=== PATIENT | female | born 1975 | race Caucasian/White ===

== ENCOUNTER 2019-07-13 08:33 | Emergency (ER) | payer OTHER, SELFPAY ==
[2019-07-13 08:37] VITALS: BP 142/87; PULSE 79; RESP 16; TEMP 36.5; O2SAT 100; BMI 25.2
--- NOTE | 2019-07-13 08:38 | ED_ITS ---
Entered by Porsha Dotson, acting as scribe for Susan Guerra MD HPI - General Adult General: Chief complaint: Skin/Abscess/Foreign Body Stated complaint: RASH ON NECK Time Seen by Provider: 07/13/19 08:38 History of Present Illness: HPI narrative: 43 yo female presents with rash on neck. Pt states that she started getting this rash on Sunday. pt states that she has used peroxide, cortisone cream, and antibiotic ointment. Pt states that it itches. MD complaint: rash on neck Onset (ago): day(s) (5) Radiation: neck Severity: mild Associated symptoms: Reports rash; Deny chest pain, dyspnea, headache(s), nausea or vomiting Review of Systems Const: Denies: fever, chills, body aches or change in appetite Eyes: Denies: blurry vision or eye discomfort ENMT: Denies: throat pain or dental pain Card: Denies: chest pain Resp: Denies: shortness of breath GI: Denies: abdominal pain, nausea, vomiting or diarrhea : Denies: painful urination Musc: Denies: neck pain or back pain Skin/Breast: Reports: rash and dry skin Neuro: Denies: headache Psych: Denies: depression Barry/Lymph: Denies: easy bruising All/Imm: Denies: hives PFSH ED PFSH: Social History Smoking and tobacco status: never smoked Physical Exam Const: COMMON NORMALS: no apparent distress, oriented x3 and healthy appearing HENMT: COMMON NORMALS: normocephalic and head/scalp atraumatic HEAD & SCALP: normocephalic and atraumatic Eye: COMMON NORMALS: PERRL and EOMs intact bilaterally PUPIL: Yes PERRL Neck/C-Spine: COMMON NORMALS: full ROM and supple Chest: COMMONS NORMALS: inspection of chest normal and palpation of chest normal Resp: COMMON NORMALS: normal respiratory effort, no retractions, no use of accessory muscles and clear to auscultation bilaterally AUSCULTATION: clear to auscultation bilaterally Cardio: COMMON NORMALS: regular rate, regular rhythm and no murmurs RATE: regular rate RHYTHM: regular rhythm GI: COMMON NORMALS: normal to inspection, nondistended, normoactive bowel sounds, soft to palpation, non-tender and no masses PALPATION: Yes soft Extremity: COMMON NORMALS: normal to inspection and full ROM Neuro: COMMON NORMALS: oriented x3, moves all extremities and no focal motor deficits Psych: COMMON NORMALS: mental status grossly normal, thought process normal and cooperative THOUGHT PROCESS: normal thought process Skin: NARRATIVE SKIN EXAM: macular papular rash to neck Course Vital Signs: Vital signs: Vital Signs Temperature 97.7 F 07/13/19 08:37 Pulse Rate 79 07/13/19 08:37 Respiratory Rate 16 07/13/19 08:37 Blood Pressure 142/87 07/13/19 08:37 Pulse Oximetry 98 07/13/19 08:43 MDM - General Adult MDM Narrative: Medical decision making narrative: Patient presents here with a rash to her neck that is likely allergic in nature. Will place on steroids and she is to take Benadryl. Patient has no signs of cellulitis or abscess. Patient is stable for discharge and is return if worsening. Discharge Plan Discharge Patient Disposition: Home, Self-Care Clinical Impression: Rash Condition: Stable Prescriptions: New prednisone 50 mg tablet 50 mg PO DAILY Qty: 5 RF: 0 Discharge Orders: Discharge Order (Routine); Ordered 07/13/19 Ordered By: Susan Guerra Referrals: Varsha Goetz [employer] [Family Provider] - 4-7 days Discharge Diet: Advance as tolerated Discharge Activity: Resume usual activity Patient Instructions: Acute Rash (ED) Discharge Date/Time: 07/13/19 08:47 Coding Level of Care Code ED [employer] Professor for Chg Fwd Exam Comprehensive The documentation recorded by the Mauri tripp Kialy, accurately reflects the service I personally performed and the decisions made by Mari valdovinos Korby, MD Jul 13, 2019 08:33
[2019-07-13 08:43] VITALS: O2SAT 98
== END 2019-07-13 08:47 | disposition home or self-care (01) ==
LOC: ER 08:57
PROVIDERS: Emergency Provider Emergency Medicine; Family Provider Nurse Practitioner
DX: R21 Rash and other nonspecific skin eruption (principal)
CPT/HCPCS: 99282

== ENCOUNTER 2020-03-12 12:46 | Outpatient (CLI) | payer OTHER, SELFPAY ==
--- NOTE | 2020-03-12 12:55 | MM_ITS ---
WS: [id number] BILATERAL DIGITAL SCREENING MAMMOGRAPHY WITH CAD CLINICAL INFORMATION: SCREENING HISTORY: Screening mammogram. No current complaints. COMPARISON: TECHNIQUE: Bilateral CC and MLO views. FINDINGS: The breasts are composed of heterogeneous fibroglandular density tissue, which can limit the detectio n of small underlying mass lesions. No suspicious mass, asymmetry, calcifications, or architectural d istortion. No evidence of malignancy. MM/[place] [id number] IMPRESSION: BI-RADS: 1-Negative FOLLOW UP: 1 Year Follow-up Recommend return to annual screening mammography.
== END 2020-03-12 12:47 | disposition home or self-care (01) ==
LOC: RADSHAW 12:50
PROVIDERS: PCP Nurse Practitioner; Visit Provider Nurse Practitioner
DX: Z12.31 Encounter for screening mammogram for malignant neoplasm of breast (principal)
CPT/HCPCS: 77067

== ENCOUNTER 2020-07-13 07:39 | Outpatient (CLI) | payer MEDICAID, SELFPAY ==
--- NOTE | 2020-07-13 07:45 | NM_ITS ---
WS: [id number] NUCLEAR MEDICINE HIDA SCAN CLINICAL INFORMATION: DZ OF GALLBLADDER/UPPER ABD PAIN/NAUESA W/VOMITING TECHNIQUE: Following intravenous administration of 8.0 mCi of technetium 99m mebrofenin, images of th e abdomen were obtained over the course of 60 minutes. Next, gallbladder ejection fraction was determ ined by obtaining preprandial and one-hour postprandial images of the gallbladder following oral abbi stion of Ensure. COMPARISON: None. FINDINGS: Normal hepatic uptake at 5 minutes. Gallbladder is visualized by 10 minutes. No evidence of acute cho lecystitis. Normal common bile duct and small bowel activity. Normal hepatic excretion. No evidence o f choledocholithiasis. Gallbladder ejection fraction 78% within normal limits. No evidence of chronic cholecystitis. NM/NM hepatobiliary w phar* [id number] IMPRESSION: 1. No evidence of acute or chronic cholecystitis. 2. Gallbladder ejection fraction 78% within normal limits.
== END 2020-07-13 07:40 | disposition home or self-care (01) ==
LOC: RAD 07:40
PROVIDERS: PCP Nurse Practitioner; Visit Provider Nurse Practitioner Family
DX: K82.9 Disease of gallbladder, unspecified (principal); R10.10 Upper abdominal pain, unspecified; R11.2 Nausea with vomiting, unspecified
CPT/HCPCS: 78227; A9537

== ENCOUNTER → 2020-07-19 13:09 | Outpatient (BNVA) | payer MEDICAID, SELFPAY | PROVIDERS: PCP Nurse Practitioner; Visit Provider Internal Medicine | DX: Z01.812 Encounter for preprocedural laboratory examination (principal); R10.11 Right upper quadrant pain; Z20.822 Contact with and (suspected) exposure to COVID-19 | CPT/HCPCS: 87635 ==

== ENCOUNTER 2020-07-23 07:50 | Day surgery (SDC) | payer MEDICAID, SELFPAY ==
[2020-07-21 14:15] VITALS: BMI 26.2
[2020-07-23 08:07] LABS: OR HCG Qualitative Urine Negative (Negative)
--- NOTE | 2020-07-23 08:07 | ANES.PREANE2 ---
Pre-Anesthetic Assessment Pre-Anesthetic Assessment: Height/Weight: Height 1.7 m Weight 75.75 kg Preop Diagnosis: Abdominal pain Proposed Procedure: Operation Date: 07/23/20 09:30 Proposed Procedures p EGD 08808 R10.11(Not Applicable) - Nathaniel Whitaker MD Familial anesthetic complications: NOne Last intake: NPO > 8 hrs Social: Social History: No alcohol and No tobacco Exam: Pre-Anes Outpt Exam: alert, oriented x 3, clear to auscultation bilaterally and regular rate & rhythm Airway: Cervical ROM: WNL MP: 4 Dentition: Chipped and Other (missing) Additional comments: poor dentition, discolored GI: GI: GERD (not right now) Metabolic: Metabolic: Thyroid Neuropsych: Neuropsych: Neuropathy (legs) Anesthetic Plan: ASA status: 2 Anesthesia: MAC Risk of > 500 ml blood loss (7ml/kg in children): No PFSH Anesthesia PFSH: Medical History GERD (gastroesophageal reflux disease) Hypothyroidism Family History Other Atrial fibrillation Hypertension Social History Smoking and tobacco status: never smoked Alcohol intake: never Data Anesthesia Other Labs: Laboratory Results - last 48 hr 07/23/20 07:58 Urine HCG, Qual Negative Cardiac Studies: Holter Monitor 09/03/19
[2020-07-23 08:42] VITALS: BP 132/84; PULSE 82; RESP 18; TEMP 36.7; O2SAT 95
[2020-07-23] MEDS: sodium chloride 0.9% 1,000 ML 30 ML IV (08:47)
--- NOTE | 2020-07-23 09:39 | W.PM.OPSUD ---
Surgery/Procedure H&P Update DATE OF PROCEDURE: July 23, 2020 DATE H&P PERFORMED: 07/15/20 PREOP DIAGNOSIS: egd PLANNED PROCEDURE: Operation Date: 07/23/20 09:30 Proposed Procedures p EGD 95112 R10.11(Not Applicable) - Nathaniel Whitaker MD
[2020-07-23 09:54] VITALS: BP 123/92; PULSE 93; RESP 16; TEMP 36.2; O2SAT 99
[2020-07-23 10:01] VITALS: BP 133/96; PULSE 97; RESP 18; O2SAT 97
--- NOTE | 2020-07-23 14:21 | ANE.PACU2 ---
Inpatient post-anesthesia follow up: Airway intact: Yes Vital signs: Temperature 97.2 F Pulse Rate 97 Respiratory Rate 18 Blood Pressure 133/96 Pulse Oximetry 97 Oxygen Delivery Me thod Room Air Oxygen Flow Rate Fraction of Inspir ed Oxygen Hydration adequate: Yes Nausea and vomiting: No Pain level: 1 Mental status: Baseline
[2020-07-26 07:33] LABS: H. Pylori / CLO Test Negative
== END 2020-07-23 10:25 | disposition home or self-care (01) ==
PROVIDERS: Anesthesiology; PCP Nurse Practitioner; Visit Provider Internal Medicine
PROC: 0DJ08ZZ Inspection of Upper Intestinal Tract, Via Natural or Artificial Opening Endoscopic (ICD-10-PCS; CPT 43235; principal; 2020-07-23 09:30)
DX: R10.11 Right upper quadrant pain (principal); K21.9 Gastro-esophageal reflux disease without esophagitis; E03.9 Hypothyroidism, unspecified; K29.70 Gastritis, unspecified, without bleeding
CPT/HCPCS: 43239; 84703; 87077; 96360; J2704; J3490; J7030

== ENCOUNTER → 2020-08-20 00:01 | Outpatient (BNVA) | payer MEDICAID, SELFPAY | PROVIDERS: PCP Nurse Practitioner; Visit Provider Surgery | DX: Z20.822 Contact with and (suspected) exposure to COVID-19 (principal) | CPT/HCPCS: 87635 ==

== ENCOUNTER 2020-08-25 05:42 | Day surgery (SDC) | payer MEDICAID, SELFPAY ==
[2020-08-24 10:38] VITALS: BMI 25.5
[2020-08-25] VITALS (12 sets, daily range): BP systolic 144–168; BP diastolic 90–113; PULSE 87–106; RESP 15–18; TEMP 36.3–36.6; O2SAT 94–99
[2020-08-25] MEDS: sodium chloride 0.9% 1,000 ML 30 ML IV (06:15)
[2020-08-25 06:19] LABS: OR HCG Qualitative Urine Negative (Negative)
--- NOTE | 2020-08-25 06:24 | ANES.PREANE2 ---
Pre-Anesthetic Assessment Pre-Anesthetic Assessment: Height/Weight: Height 1.7 m Weight 73.936 kg Temp Pulse Resp BP Pulse Ox 97.4 F L 90 18 145/95 96 08/25/20 06:12 08/25/20 06:12 08/25/20 06:12 08/25/20 06:12 08/25/20 06:12 Preop Diagnosis: Chronic cholecystitis Proposed Procedure: Operation Date: 08/25/20 07:00 Proposed Procedures p Laparoscopic Cholecystectomy 55383 r10.11(Not Applicable) - Alfonso Bal MD Familial anesthetic complications: none Was Beta Huong taken within 24 hours: N/A Was Clonidine taken within 24 hours: N/A Last intake: Intake Last Liquid Date 08/24/20 Last Liquid Time 23:30 Last Solid Date 08/24/20 Last Solid Time 16:00 Social: Social History: No alcohol and No tobacco Exam: Pre-Anes Outpt Exam: alert, oriented x 3, clear to auscultation bilaterally and regular rate & rhythm Airway: Cervical ROM: WNL MP: 2 Dentition: Chipped and Other (missing, poor dentition) GI: GI: GERD Metabolic: Metabolic: Thyroid Neuropsych: Neuropsych: Anxiety Anesthetic Plan: ASA status: 2 Anesthesia: General Risk of > 500 ml blood loss (7ml/kg in children): No Meds/Allergies Current Medications: Current Medications Generic Name Dose Route Start Last Admin Trade Name Freq PRN Reason Stop Dose Admin Sodium Chloride 1,000 mls @ 30 ml s/hr 08/25/20 06:00 08/25/20 06:15 Sodium Chloride 0.9% IV 08/26/20 05:59 30 mls/hr .Q24H ITZEL Administration PFSH Anesthesia PFSH: Medical History (Updated 07/30/20 @ 09:36 by Alfonso Bal MD) Anxiety GERD (gastroesophageal reflux disease) Hypothyroidism Surgical History (Updated 07/30/20 @ 09:36 by Alfonso Bal MD) History of ankle surgery History of esophagogastroduodenoscopy (EGD) (~2020) Family History Other Atrial fibrillation Hypertension Social History Smoking and tobacco status: never smoked Alcohol intake: never Female Reproductive History: Date of last menstrual period: 07/20/20 Data Anesthesia Other Labs: Laboratory Results - last 48 hr 08/25/20 05:57 Urine HCG, Qual Negative Cardiac Studies: Holter Monitor 09/03/19
--- NOTE | 2020-08-25 06:52 | W.PM.OPSUD ---
Surgery/Procedure H&P Update DATE OF PROCEDURE: August 25, 2020 DATE H&P PERFORMED: 07/30/20 H&P UPDATE INFORMATION: I have reviewed H&P completed within last 30 days, I have examined patient prior to procedure and No changes to prior documentation PREOP DIAGNOSIS: Chronic cholecystitis PLANNED PROCEDURE: Operation Date: 08/25/20 07:00 Proposed Procedures p Laparoscopic Cholecystectomy 49247 r10.11(Not Applicable) - Alfonso Bal MD
--- NOTE | 2020-08-25 08:02 | PM.OP ---
Operative Report Date of procedure: August 25, 2020 Pre-op Diagnosis: Chronic cholecystitis Post-op diagnosis: same Procedure Done: Laparoscopic cholecystectomy Specimens removed/disposition: Gallbladder Surgeon: Alfonso Bal Anesthesia: General Condition: stable Disposition: PACU Procedure: The patient was taken to the operating room and was intubated under general anesthesia. After the antibiotic had been administered, the abdomen was prepped and draped in a sterile manner. Using a #15 blade, a 1 centimeter infraumbilical curvilinear incision was made and using an open Rainer technique the peritoneal cavity was entered. A 10 millimeter port was placed and 15 millimeters of pneumoperitoneum was created. A 10 millimeter, 30 degrees scope was then introduced. Three 5 millimeter ports were placed in the epigastric, midclavicular and the anterior axillary line two fingerbreadths below the costal margin on the right side under the direct visualization. Ratcheted forceps were introduced into the lateral most port and was used to retract the fundus of the gallbladder cephalad and using forceps the infundibulum of the gallbladder was retracted laterally. The gallbladder was decompressed using an aspiration needle using L-hook cautery the peritoneum overlying the Calot's triangle was opened medially and laterally until the cystic duct and the cystic artery were skeletonized. There was chronic inflammation around the Calot's triangle. Dissection was carried along the body of the gallbladder and after ensuring critical view of safety, 4 clips applied on the cystic duct and 3 clips applied on the anterior and posterior branch of cystic artery and cut leaving, 3 clips on the remaining portion of the duct and 2 clips on the remaining portion of the artery. The rest of the gallbladder was dissected off the liver using L-hook cautery. There was no bleeding or bile leaking noted from the gallbladder fossa and the clips appeared to be in place. An EndoCatch bag was introduced to remove the gallbladder. All the ports were removed under direct visualization and there was no bleeding noted from the port sites. The fascia of the umbilicus was closed using [id number] 0 Vicryl sutures and the subcutaneous tissue was approximated using 3-0 Vicryl sutures. The skin at all four ports were closed using 4-0 Monocryl and Dermabond. A total of 10 millimeters of 0.5% Marcaine was infiltrated around the port sites. The patient was stable throughout the procedure.
--- NOTE | 2020-08-25 08:13 | SUR.PHASEI ---
pt awake alert , repositioned self on right side, good resp effort, vss iv patent, sats 93%
[2020-08-25] MEDS: ondansetron 2 mg/ML SDV 2 mL 4 MG IVP (08:23)
[2020-08-25] MEDS: fentaNYL 50 mcg/mL INJ 2mL IVP (08:24)
[2020-08-25] MEDS: HYDROcodone-acetaminophen 5-325 mg Tablet 1 TAB PO (08:52)
--- NOTE | 2020-08-25 15:51 | ANE.PACU2 ---
Inpatient post-anesthesia follow up: Airway intact: Yes Vital signs: Temperature 97.3 F Pulse Rate 87 Respiratory Rate 18 Blood Pressure 165/98 Pulse Oximetry 95 Oxygen Delivery Me thod Room Air Oxygen Flow Rate 6 Fraction of Inspir ed Oxygen Hydration adequate: Yes Nausea and vomiting: No Pain level: 3 Mental status: Baseline
== END 2020-08-25 09:30 | disposition home or self-care (01) ==
PROVIDERS: Anesthesiology; PCP Nurse Practitioner; Visit Provider Surgery
PROC: 0FT44ZZ Resection of Gallbladder, Percutaneous Endoscopic Approach (ICD-10-PCS; CPT 47562; principal; 2020-08-25 07:00)
DX: K81.1 Chronic cholecystitis (principal); K21.9 Gastro-esophageal reflux disease without esophagitis; E03.9 Hypothyroidism, unspecified
CPT/HCPCS: 47562; 84703; 88304; J0690; J1100; J2250; J2405; J2704; J3010; J3490; J7030

== ENCOUNTER → 2020-09-21 11:02 | Outpatient (BNVA) | payer MEDICAID, SELFPAY | PROVIDERS: PCP Nurse Practitioner; Referring Provider Nurse Practitioner; Visit Provider Orthopaedic Surgery | DX: M75.52 Bursitis of left shoulder (principal) | CPT/HCPCS: 73030 ==

== ENCOUNTER → 2020-11-10 14:54 | Outpatient (BNVA) | payer MEDICAID, SELFPAY | PROVIDERS: PCP Nurse Practitioner; Referring Provider Nurse Practitioner; Visit Provider Specialist | DX: G43.711 Chronic migraine without aura, intractable, with status migrainosus (principal); R42 Dizziness and giddiness; R26.9 Unspecified abnormalities of gait and mobility | CPT/HCPCS: 99204 ==

== ENCOUNTER 2020-12-21 08:11 | Outpatient (CLI) | payer MEDICAID, SELFPAY ==
--- NOTE | 2020-12-21 08:38 | MR_ITS ---
WS: [id number] MRI BRAIN WITHOUT CONTRAST HISTORY: G43.711 - Chronic migraine without aura, intractable. COMPARISON: None available. TECHNIQUE: Diffusion imaging, multiplanar T1, T2 and FLAIR imaging obtained. No evidence for acute infarct or hemorrhage. Dumas-white matter differentiation is normal. Single nons pecific focus of increased T2 and FLAIR signal in the subcortical white matter of the posterior LEFT frontal lobe. Not a typical for this age group. No prior infarcts are volume loss. No ectopia of dumas matter. No hippocampal formation abnormalities. No remote or acute infarcts are volume loss. Ventricles and extra-axial spaces are normal. No inferior displacement of cerebellar tonsils. The sella turcica and pituitary gland are unremarkabl e. Dural venous sinuses and saxman of [place] demonstrate no abnormality on this unenhanced studies. Paranasal sinuses: Clear. Mastoid air cells: Normal. Calvarium and scalp: Intact. MR/MR head wo con* [id number] IMPRESSION: 1. No acute infarct, hemorrhage or mass effect. 2. Single nonspecific focus of increased T2 signal subcortical LEFT frontal lo be white matter. Not unusual for this age group. 3. No prior infarcts.
== END 2020-12-21 08:12 | disposition home or self-care (01) ==
PROVIDERS: PCP Nurse Practitioner; Visit Provider Specialist
DX: G43.711 Chronic migraine without aura, intractable, with status migrainosus (principal)
CPT/HCPCS: 70551

== ENCOUNTER → 2021-02-09 12:20 | Outpatient (BNVA) | payer MEDICAID, SELFPAY | PROVIDERS: PCP Nurse Practitioner; Visit Provider Specialist | DX: G43.711 Chronic migraine without aura, intractable, with status migrainosus (principal); R42 Dizziness and giddiness | CPT/HCPCS: 99214 ==

== ENCOUNTER → 2021-03-09 09:17 | Outpatient (BNVA) | payer MEDICAID, SELFPAY | PROVIDERS: PCP Nurse Practitioner; Referring Provider Nurse Practitioner; Visit Provider Anesthesiology Pain Medicine | DX: M25.512 Pain in left shoulder (principal); M75.102 Unspecified rotator cuff tear or rupture of left shoulder, not specified as traumatic; M12.812 Other specific arthropathies, not elsewhere classified, left shoulder | CPT/HCPCS: 99204 ==

== ENCOUNTER 2021-04-12 11:52 | Outpatient (CLI) | payer MEDICAID, SELFPAY ==
--- NOTE | 2021-04-12 13:00 | MR_ITS ---
WS: [id number] MRI LEFT SHOULDER HISTORY: Unspecified rotator cuff tear. Prior injury. COMPARISON: 04/14/2015 TECHNIQUE: Multiplanar sequences of the shoulder joint are submitted. Mild AC joint arthritis with hypertrophy and synovial thickening. Very minimal encroachment upon the supraspinatus muscle. There is a small amount of fluid in the subacromial and subdeltoid bursa. 5 mm osteophyte from the distal undersurface of the acromion with mild subacromial impingement. No os acro mion. Biceps tendon in normal position. No rotator cuff tear or retraction. Normal size of the rotator cuff muscles. No edema. There is incre ased signal involving the anterior labrum. The remaining labrum is intact. Small subchondral cyst in the posterior lateral humeral head. MR/MR shoulder LT wo con* [id number] IMPRESSION: 1. Mild AC joint arthritis. 2. Mild subacromial impingement upon the supraspinatus by 5 mm osteophyte from the distal acromion. 3. No rotator cuff tear identified. 4. Focal anterior labral tear.
== END 2021-04-12 11:53 | disposition home or self-care (01) ==
LOC: RADSHAW 11:56
PROVIDERS: PCP Nurse Practitioner; Visit Provider Anesthesiology Pain Medicine
DX: M19.012 Primary osteoarthritis, left shoulder; M75.102 Unspecified rotator cuff tear or rupture of left shoulder, not specified as traumatic; S43.432A Superior glenoid labrum lesion of left shoulder, initial encounter; X58.XXXA Exposure to other specified factors, initial encounter
CPT/HCPCS: 73221

== ENCOUNTER 2021-04-25 15:19 | Emergency (ER) | payer MEDICAID, SELFPAY ==
[2021-04-25 16:06] VITALS: BP 122/74; PULSE 69; RESP 16; TEMP 36.8; O2SAT 98
--- NOTE | 2021-04-25 16:12 | XRR_ITS ---
PROCEDURE INFORMATION: Exam: XR Right Shoulder Exam date and time: 04/25/2021 4:12 PM Age: 45 years old Clinical indication: Patient HX: History--unknown injury, right shoulder pain, limited rom; Additional info: Injury/pain TECHNIQUE: Imaging protocol: XR Right shoulder. Views: 2 or more views. COMPARISON: CR Chest 1 [place] [id number] 08/21/2018 9:48 PM FINDINGS: Bones/joints: Normal. Soft tissues: Normal. XR/XR shoulder RT min 2V* [id number] IMPRESSION: No acute findings.
== END 2021-04-25 18:20 | disposition left against medical advice (07) ==
LOC: ER 15:21
PROVIDERS: Emergency Provider Family Medicine; PCP Nurse Practitioner
DX: Z53.21 Procedure and treatment not carried out due to patient leaving prior to being seen by health care provider (principal)
CPT/HCPCS: 73030

== ENCOUNTER → 2021-04-28 09:46 | Outpatient (BNVA) | payer MEDICAID, SELFPAY | PROVIDERS: PCP Nurse Practitioner; Visit Provider Anesthesiology Pain Medicine | DX: M19.012 Primary osteoarthritis, left shoulder (principal); R51.9 Headache, unspecified | CPT/HCPCS: 99214 ==

== ENCOUNTER 2021-08-19 13:24 | Outpatient (CLI) | payer OTHER, MEDICAID, SELFPAY ==
--- NOTE | 2021-08-19 13:36 | MM_ITS ---
WS: [id number] BILATERAL SCREENING 3D TOMOSYNTHESIS DIGITAL MAMMOGRAM WITH CAD HISTORY: SCREENING COMPARISON: 03/12/2020 and 01/06/2019 Bilateral CC and MLO views submitted. Computer aided detection analyzed. Breast composition: There are scattered areas of fibroglandular density. No suspicious masses, microc alcifications or architectural distortion. MM/[place] [id number] IMPRESSION: BI-RADS: 1-Negative FOLLOW UP: 1 Year Follow-up
== END 2021-08-19 13:25 | disposition home or self-care (01) ==
LOC: RADSHAW 13:27
PROVIDERS: PCP Nurse Practitioner; Visit Provider Nurse Practitioner
DX: Z12.31 Encounter for screening mammogram for malignant neoplasm of breast (principal)
CPT/HCPCS: 77063; 77067

== ENCOUNTER → 2021-11-16 09:09 | Outpatient (BNVA) | payer MEDICAID, SELFPAY | PROVIDERS: PCP Nurse Practitioner; Visit Provider Anesthesiology Pain Medicine | DX: M75.102 Unspecified rotator cuff tear or rupture of left shoulder, not specified as traumatic (principal); M12.812 Other specific arthropathies, not elsewhere classified, left shoulder | CPT/HCPCS: 99213 ==

== ENCOUNTER → 2021-12-15 12:02 | Outpatient (BNVA) | payer MEDICAID, SELFPAY | PROVIDERS: PCP Nurse Practitioner; Visit Provider Anesthesiology Pain Medicine | DX: M19.012 Primary osteoarthritis, left shoulder (principal) | CPT/HCPCS: 20610; J1030 ==

== ENCOUNTER → 2022-02-21 08:42 | Outpatient (BNVA) | payer MEDICAID, SELFPAY | PROVIDERS: PCP Nurse Practitioner; Visit Provider Anesthesiology Pain Medicine | DX: M75.102 Unspecified rotator cuff tear or rupture of left shoulder, not specified as traumatic (principal); M12.812 Other specific arthropathies, not elsewhere classified, left shoulder; G43.711 Chronic migraine without aura, intractable, with status migrainosus; R42 Dizziness and giddiness; M54.9 Dorsalgia, unspecified | CPT/HCPCS: 99213 ==

== ENCOUNTER → 2022-06-06 14:39 | Outpatient (BNVA) | payer MEDICAID, SELFPAY | PROVIDERS: PCP Nurse Practitioner; Visit Provider Specialist | DX: G43.711 Chronic migraine without aura, intractable, with status migrainosus (principal) | CPT/HCPCS: 99214 ==

== ENCOUNTER → 2022-10-04 09:00 | Outpatient (BNVA) | payer MEDICAID, SELFPAY | PROVIDERS: PCP Nurse Practitioner; Visit Provider Specialist | DX: G43.711 Chronic migraine without aura, intractable, with status migrainosus; R26.9 Unspecified abnormalities of gait and mobility; R42 Dizziness and giddiness; M19.90 Unspecified osteoarthritis, unspecified site; R26.89 Other abnormalities of gait and mobility | CPT/HCPCS: 99215 ==

== ENCOUNTER 2022-10-09 10:34 | Oncology outpatient (recurring) (ONCR) | payer MEDICAID, SELFPAY ==
[2022-10-09] VITALS (7 sets, daily range): BP systolic 116–127; BP diastolic 74–76; PULSE 64–68; RESP 16–18; TEMP 36.3–36.4; O2SAT 98–99
[2022-10-09] MEDS: ondansetron 2 mg/ML SDV 2 mL 4 MG IVP (12:02)
[2022-10-09] MEDS: diphenhydrAMINE 50 mg/mL SDV 1mL 25 MG IVP (12:06)
[2022-10-09] MEDS: sodium chloride 0.9% (100 ml) 100 ML 50 ML (12:19)
[2022-10-09] MEDS: dihydroergotamine 1 mg/mL Inj 0.5 MG IVP ×3 (12:26→15:20)
[2022-10-09] MEDS: dihydroergotamine 1 mg/mL Inj IVP (13:58)
[2022-10-09] MEDS: valproic acid inj 500 MG in sodium chloride 0.9% 50 ML 55 MG IV (15:59)
== END 2022-10-18 23:59 | disposition home or self-care (01) ==
LOC: ONCMED 10:35
PROVIDERS: PCP Nurse Practitioner; Visit Provider Specialist
DX: G43.711 Chronic migraine without aura, intractable, with status migrainosus (principal)
CPT/HCPCS: 96361; 96365; 96375; J1110; J1200; J2405; J3490

== ENCOUNTER 2022-10-20 08:52 | Outpatient (CLI) | payer MEDICAID, SELFPAY ==
--- NOTE | 2022-10-20 09:30 | MR_ITS ---
WS: [id number] MRI HEAD WITHOUT CONTRAST TECHNIQUE: Sagittal T1, T2 axial, T2 axial FLAIR, axial and coronal T1 images, axial susceptibility w eighted imaging, axial diffusion weighted images, and coronal T2 images were obtained. CLINICAL INFORMATION: R51.9 - Headache, unspecified COMPARISON: MRI December 21, 2020 FINDINGS: No evidence of restricted diffusion to suggest acute ischemia. Ventricular system and basal cisterns are patent. Single T2 hyperintensity in the LEFT posterior frontal subcortical white matter unchanged since 2020. No other suspicious intracranial signal abnormalities. Normal posterior fossa. Normal va scular flow voids at the skull base. No extra-axial fluid collections. No evidence of mass or mass ef fect. Paranasal sinuses and mastoid air cells well aerated. Normal posterior nasopharynx and parapharyngeal fat. No hemosiderin on susceptibly weighted images. Normal optic chiasm and pituitary infundibulum. Temporal lobes and hippocampal formations are normal in appearance. IMPRESSION: 1. No evidence of restricted diffusion to suggest acute ischemia. 2. Single focus of T2 hyperintensity in the LEFT posterior frontal lobe unchanged since 2020. This i s nonspecific but can be seen with migraine headaches. 3. No other suspicious intracranial signal abnormalities. 4. No hemosiderin on susceptibly weighted images. 5. No other acute findings.
== END 2022-10-20 08:53 | disposition home or self-care (01) ==
LOC: RAD 08:54
PROVIDERS: PCP Nurse Practitioner; Visit Provider Specialist
DX: R51.9 Headache, unspecified (principal); G89.29 Other chronic pain
CPT/HCPCS: 70551; 99215

== ENCOUNTER 2022-11-01 13:47 | Outpatient (CLI) | payer MEDICAID, SELFPAY ==
--- NOTE | 2022-11-01 13:54 | MM_ITS ---
WS: [id number] SCREENING DIGITAL TOMOSYNTHESIS MAMMOGRAM WITH CAD HISTORY: SCREEN COMPARISON: 08/19/2021, 03/12/2020 Bilateral CC and MLO with tomosynthesis views submitted. Synthetic mammography reviewed. Computer aid ed detection analyzed. Breast composition: There are scattered areas of fibroglandular density. No suspicious masses, microc alcifications or architectural distortion. MM/[place] [id number] IMPRESSION: BI-RADS: 1-Negative FOLLOW UP: 1 Year Follow-up
== END 2022-11-01 13:48 | disposition home or self-care (01) ==
LOC: RAD 13:48
PROVIDERS: PCP Nurse Practitioner; Visit Provider Nurse Practitioner
DX: Z12.31 Encounter for screening mammogram for malignant neoplasm of breast (principal)
CPT/HCPCS: 77063; 77067

== ENCOUNTER 2022-12-11 13:26 | Outpatient (CLI) | payer MEDICAID, SELFPAY ==
--- NOTE | 2022-12-11 14:57 | XR_ITS ---
WS: [id number] DEXA (DUAL ENERGY X-RAY ABSORPTIOMETRY) Bone mineral density was performed using a [employer] machine. HISTORY: [facility] (current) use of hormonal contraceptives COMPARISON: None available. Lumbar spine BMD (L1-L4): 0.987 g/cm2 T score: -1.6 Z score: -1.7 Total hip BMD: Left: 0.710 g/cm2. T score: -2.4 Z score: -2.2 Right: 0.711 g/cm2. T score: -2.4 Z score: -2.2 10 year probability of a major osteoporotic fracture is 4.6%. XR/XR DEXA axial skeleton* [id number] IMPRESSION: OSTEOPENIA based upon the WHO classification for females.
== END 2022-12-11 13:27 | disposition home or self-care (01) ==
LOC: RAD 13:27
PROVIDERS: PCP Nurse Practitioner; Visit Provider Nurse Practitioner
DX: Z79.3 Long term (current) use of hormonal contraceptives (principal); M85.80 Other specified disorders of bone density and structure, unspecified site
CPT/HCPCS: 77080

== ENCOUNTER → 2022-12-26 09:17 | Outpatient (BNVA) | payer MEDICAID, SELFPAY | PROVIDERS: PCP Nurse Practitioner; Referring Provider Nurse Practitioner; Visit Provider Student in an Organized Health Care Education/Training Program | DX: M70.61 Trochanteric bursitis, right hip; M70.62 Trochanteric bursitis, left hip | CPT/HCPCS: 20610; 73522; 99203; J3301; J3490 ==

== ENCOUNTER → 2023-01-17 13:09 | Outpatient (BNVA) | payer MEDICAID, SELFPAY | PROVIDERS: PCP Nurse Practitioner; Visit Provider Specialist | DX: G43.711 Chronic migraine without aura, intractable, with status migrainosus (principal) | CPT/HCPCS: 99213 ==

== ENCOUNTER 2023-02-22 10:53 | Outpatient (CLI) | payer OTHER, SELFPAY ==
--- NOTE | 2023-02-22 11:05 | XR_ITS ---
WS: [id number] EXAMINATION: XR knee RT 1-2V [id number] REASON FOR EXAM: R KNEE PAIN COMPARISON: None available. ORDER DATE: 02/22/2023 11:29 AM FINDINGS: There is no sign of any acute osseous or articular abnormality. There are no specific soft tissue abn ormalities. IMPRESSION: No acute change
== END 2023-02-22 10:54 | disposition home or self-care (01) ==
LOC: RAD 10:58
PROVIDERS: PCP Nurse Practitioner; Visit Provider Dermatology
DX: M25.561 Pain in right knee (principal)
CPT/HCPCS: 73560

== ENCOUNTER → 2023-02-27 10:46 | Outpatient (BNVA) | payer MEDICAID, SELFPAY | PROVIDERS: PCP Nurse Practitioner; Visit Provider Otolaryngology | DX: H93.12 Tinnitus, left ear (principal); M26.629 Arthralgia of temporomandibular joint, unspecified side; K08.9 Disorder of teeth and supporting structures, unspecified | CPT/HCPCS: 99202; 99203 ==

== ENCOUNTER 2023-03-17 20:23 | Emergency (ER) | payer MEDICAID, SELFPAY ==
[2023-03-17 20:32] VITALS: BP 147/87; PULSE 107; RESP 20; TEMP 36.5; O2SAT 98; BMI 25.0
--- NOTE | 2023-03-17 20:36 | W.ED.NAVMDI ---
HPI - Nausea/Vomiting/Diarrhea General: Chief complaint: Nausea/Vomiting/Diarrhea Stated complaint: n/v/d Time Seen by Provider: 03/17/23 20:36 History of Present Illness: 47-year-old female comes in today for complaints of nausea vomiting diarrhea since . Patient reports evening she started becoming ill. Patient has reported some chills. Patient reports poor oral intake with limited fluid intake. Patient reports decreased urination. Patient appears nontoxic. Patient appears in mild pain. Patient has a history of gallbladder removal. Patient takes medications for gastritis, chronic back pain, mental health disorder, hypothyroidism. Associated nausea: Yes Associated symtoms: Reports nausea; Denies chest pain Review of Systems General: Reports: 10 or more systems reviewed and unremarkable except in HPI and below Const: Denies: fever(s) Card: Denies: chest pain Resp: Denies: dyspnea GI: Reports: nausea, vomiting and diarrhea; Denies: constipation : Denies: difficulty voiding Musc: Reports: back pain Skin/Breast: Denies: rash PFSH ED PFSH: Medical History Anxiety GERD (gastroesophageal reflux disease) Hypothyroidism Surgical History History of ankle surgery History of esophagogastroduodenoscopy (EGD) (~2020) Status post laparoscopic cholecystectomy (08/25/20) Family History Other Atrial fibrillation Hypertension Social History Smoking and tobacco/nicotine status: never used tobacco/nicotine Second hand smoke exposure: Yes Alcohol intake: never Substance/Drug Use: never Physical Exam Const: COMMON NORMALS: alert HENMT: COMMON NORMALS: normocephalic HEAD & SCALP: normocephalic Neck/C-Spine: COMMON NORMALS: full ROM Resp: COMMON NORMALS: normal respiratory effort and clear to auscultation bilaterally AUSCULTATION: clear to auscultation bilaterally Cardio: COMMON NORMALS: regular rate and regular rhythm RATE: regular rate RHYTHM: regular rhythm GI: COMMON NORMALS: Soft to palpation PALPATION: Yes Soft to palpation and Yes Tenderness to palpation present (GI) (Mild generalized) Extremity: COMMON NORMALS: normal to inspection Neuro: SENSORIUM/ORIENTATION: Yes alert Skin: COMMON NORMALS: turgor normal GENERAL SKIN EXAM: turgor normal Course Vital Signs: Vital signs: Vital Signs Temperature 97.7 F 03/17/23 20:32 Pulse Rate 108 H 03/17/23 22:14 Respiratory Rate 14 03/17/23 22:14 Blood Pressure 153/95 03/17/23 22:14 Pulse Oximetry 96 03/17/23 22:14 MDM - Nausea/Vomiting/Diarrhea Medical Decision Making Patient presents with nausea vomiting diarrhea since . On exam abdomen soft with some generalized tenderness. Vital signs are normal except for some mild elevation in pulse. Remainder of exam is unremarkable. Differential diagnosis includes gastroenteritis, urinary tract infection, appendicitis, pancreatitis.CBC was unremarkable, CMP noted potassium 3.4, elevation and liver enzymes. Urinalysis was unremarkable. CT of the abdomen and pelvis noted some enterocolitis without obstruction or abscess. Reviewed exam with patient with recommendations for treatment for enterocolitis with a dose of steroid and Cipro to follow-up. Patient was recommended to follow-up with primary care or surgeon for further evaluation of endoscopy. Patient reported understanding and agreed to plan. Lab Data 03/17/23 20:50 03/17/23 20:50 Radiology Impressions Abdomen/Pelvis CT 03/17/23 20:52 IMPRESSION: Enterocolitis without obstruction or abscess. Laboratory Results WBC 7.78 10^3/uL (3.29-11.43) 03/17/23 20:50 RBC 4.58 10^6/uL (3.85-5.65) 03/17/23 20:50 Hgb 14.70 g/dL (11.27-16.99) 03/17/23 20:50 Hct 43.0 % (36-47) 03/17/23 20:50 MCV 93.9 fl (85-98) 03/17/23 20:50 MCH 32.1 pg (27-33) 03/17/23 20:50 MCHC 34.2 g/dL (30-55) 03/17/23 20:50 RDW 12.8 % (12.1-15.1) 03/17/23 20:50 Plt Count 168 10^3/cmm (157-399) 03/17/23 20:50 MPV 9.0 fL (7.4-10.4) 03/17/23 20:50 Neut % (Auto) 80.6 % 03/17/23 20:50 Lymph % (Auto) 11.7 % 03/17/23 20:50 [place] % (Auto) 6.8 % 03/17/23 20:50 Eos % (Auto) 0.3 % 03/17/23 20:50 Baso % (Auto) 0.3 % 03/17/23 20:50 Neut # (Auto) 6.28 10^3/uL (1.8-7.7) 03/17/23 20:50 Lymph # (Auto) 0.9 10^3/uL (0.8-4.8) 03/17/23 20:50 [place] # (Auto) 0.5 10^3/uL (0.2-0.9) 03/17/23 20:50 Eos # (Auto) 0.0 10^3/uL (0.0-0.8) 03/17/23 20:50 Baso # (Auto) 0.0 10^3/uL (0.0-0.1) 03/17/23 20:50 Nucleated RBC % (auto) 0 % 03/17/23 20:50 Nucleated RBCs # 0.0 /100WBC 03/17/23 20:50 Sodium 142 mmol/L (136-145) 03/17/23 20:50 Potassium 3.4 mmol/L (3.5-5.1) L 03/17/23 20:50 Chloride 108 mmol/L (98-107) H 03/17/23 20:50 Carbon Dioxide 21 mmol/L (22-29) L 03/17/23 20:50 Anion Gap 16.4 (5-19) 03/17/23 20:50 BUN 15 mg/dL (6-20) 03/17/23 20:50 Creatinine 0.7 mg/dL (0.5-0.9) 03/17/23 20:50 GFR Calculation 90.1 mL/min (90-130) 03/17/23 20:50 Glucose 113 mg/dL (65-115) 03/17/23 20:50 Calculated Osmolality 296 mOsm/kg (285-295) H 03/17/23 20:50 Calcium 9.1 mg/dL (8.5-10.5) 03/17/23 20:50 Total Bilirubin 0.3 mg/dL (0.15-1.2) 03/17/23 20:50 AST 75 U/L (0-32) H 03/17/23 20:50 ALT 207 U/L (0-33) H 03/17/23 20:50 Alkaline Phosphatase 135 U/L (35-105) H 03/17/23 20:50 Total Protein 6.9 g/dL (6.6-8.7) 03/17/23 20:50 Albumin 4.1 g/dL (3.5-5.2) 03/17/23 20:50 Globulin 2.8 g/dL (1.3-4.6) 03/17/23 20:50 Lipase 18 U/L (13-60) 03/17/23 20:50 Urine Color Yellow (Yellow) 03/17/23 21:26 Urine Appearance Clear (CLEAR) 03/17/23 21:26 Urine pH 6.5 (5-7) 03/17/23 21:26 Ur Specific [place] 1.000 (1.005-1.030) L 03/17/23 21:26 Urine Protein 1+ (Negative) H 03/17/23 21:26 Urine Glucose (UA) Norm (Normal) 03/17/23 21: Urine Ketones 2+ (Negative) H 03/17/23 21:26 Urine Blood 3+ (Negative) H 03/17/23 21: Urine Nitrate Negative (Negative) 03/17/23 21: Urine Bilirubin Neg (Negative) 03/17/23 21:26 Urine Urobilinogen Neg mg/dL (Negative) 03/17/23 21:26 Ur Leukocyte Esterase Negative (Negative) 03/17/23 21: Urine RBC 5-10 /hpf (0-2) H 03/17/23 21:26 Urine WBC None /hpf (0-5) 03/17/23 21:26 Ur Squamous Epith Cells 0-4 /hpf (0-5) H 03/17/23 21:26 Amorphous Sediment Trace /hpf 03/17/23 21:26 Urine Bacteria None /hpf (NONE) 03/17/23 21:26 All radiology interpretation(s) finalized by discharge Discharge Plan Discharge Patient Disposition: Home Clinical Impression: Enterocolitis Condition: Stable Prescriptions: New ciprofloxacin HCl 500 mg tablet 500 mg PO BID Qty: 9 0RF hydrocodone-acetaminophen 5-325 mg tablet 1 tab PO Q6H PRN (Reason: pain (scale score 7-10)) Qty: 7 0RF ondansetron HCl 4 mg tablet 4 mg PO Q8H PRN (Reason: nausea and vomiting) Qty: 10 0RF No Action trazodone 50 mg tablet 50 mg PO DAILY gabapentin 800 mg tablet 900 mg PO DAILY desvenlafaxine succinate [Pristiq] 100 mg tablet extended release 24 hr 100 mg PO DAILY baclofen 10 mg tablet 10 mg PO TID psyllium husk [Daily Fiber] 0.52 gram capsule 0.52 gm PO DAILY diclofenac sodium 75 mg tablet,delayed release (DR/EC) 75 mg PO BID levothyroxine [Synthroid] 112 mcg tablet 112 mcg PO DAILY diphenhydramine HCl [Benadryl] 25 mg capsule 25 mg PO Q6H PRN (Reason: Allergic Symptoms) potassium gluconate 595 mg (99 mg) tablet 595 mg PO DAILY magnesium oxide 500 mg capsule 500 mg PO DAILY medroxyprogesterone [Depo-Provera] 150 mg/mL suspension 1 mg IM Q90D cimetidine 200 mg tablet 200 mg PO QID vitamin B complex [B Complex-Vitamin B12] Tablet 1 tab PO DAILY cholecalciferol (vitamin D3) 25 mcg (1,000 unit) capsule 1,000 unit PO DAILY echinacea 400 mg capsule 400 mg PO DAILY furosemide 20 mg tablet 20 mg PO DAILY pantoprazole 20 mg tablet,delayed release (DR/EC) 20 mg PO DAILY Emgality Pen 120 mg/mL pen injector 120 mg SUBCUT .1 injection a month Qty: 3 3RF Rx Instructions: 1 year sumatriptan succinate [Imitrex] 100 mg tablet 100 mg PO .COMPLEX Qty: 10 2RF Rx Instructions: 100 mg orally take 1 at onset of headache may repeat once in an hour. max 2/24 hour zinc acetate 50 mg (zinc) capsule 50 mg PO DAILY ascorbate calcium (vitamin C) 500 mg tablet 500 mg PO DAILY propranolol 20 mg tablet 20 mg PO BID 90 Days Qty: 180 3RF acetaminophen [Tylenol Extra Strength] 500 mg tablet 500 mg PO Q6H PRN ibuprofen 200 mg tablet 200 mg PO Q6H PRN aspirin 325 mg tablet 325 mg PO DAILY PRN Emgality Pen 120 mg/mL pen injector 240 mg SUBCUT .1 injection a month Qty: 2 0RF Rx Instructions: 240mg injection first month Discharge Orders: Discharge ED (Routine); Ordered 03/17/23 Ordered By: Declan Goddard Referrals: Ruperto Vargas, PHYSICAL FITNESS TEACHER [Primary Care Provider] - Discharge Diet: Advance as tolerated Discharge Activity: Increase activity as tolerated Patient Instructions: Colitis (ED), Opioid Safety Activity Restrictions/Additional Instructions: Drink frequent sips of fluid to maintain hydration. Use electrolyte solution to help replace electrolytes loss from diarrhea or vomiting. Use hydrocodone as needed for severe pain. Use ondansetron 4 mg every 8 hours as needed for nausea or vomiting. Stay on a clear liquid diet until pain resolves. Increase diet slowly from full liquids to a bland diet until symptoms resolve. Follow-up with primary care for further evaluation and treatment. Return to ER for worsening symptoms such as no urine output within 12 hours, worsening abdominal pain, fever greater than 100.4, noticeable blood in the vomit or stool. Coding Level of Care Code ED Organizational Effectiveness Consultant for Estephania Huerta
--- NOTE | 2023-03-17 20:52 | CTR_ITS ---
PROCEDURE INFORMATION: Exam: CT Abdomen And Pelvis With Contrast Exam date and time: 03/17/2023 9:00 PM Age: 47 years old Clinical indication: Fever and nausea and vomiting; Abdominal pain; Generalized; Prior surgery; Surgery date: 6+ months; Surgery type: Gb; Patient HX: Diffuse abd pain with n/v/d and fever. ; Additional info: Abd pain, fever TECHNIQUE: Imaging protocol: Computed tomography of the abdomen and pelvis with contrast. Radiation optimization: All CT scans at this facility use at least one of these dose optimization techniques: automated exposure control; mA and/or kV adjustment per patient size (includes targeted exams where dose is matched to clinical indication); or iterative reconstruction. Contrast material: OMNI 350; Contrast volume: 100 ml; Contrast route: INTRAVENOUS (IV); REPORTING DATA: Count of CT and Cardiac NM exams in prior 12 months: This patient has received 0 known CTs and 0 known cardiac nuclear medicine studies in the 12 months prior to the current study. COMPARISON: CT abdomen pelvis w con* [id number] 07/19/2017 7:07 AM RADIATION DOSE METRICS: Total DLP (mGy-cm): 488.07 FINDINGS: Lungs: The lung bases are clear. Liver: Normal. No mass. Gallbladder and bile ducts: The gallbladder is surgically absent. Pancreas: Normal. No ductal dilation. Spleen: Normal. No splenomegaly. Adrenal glands: Normal. No mass. Kidneys and ureters: Normal. No hydronephrosis. Stomach and bowel: There is segmental wall thickening in the ascending colon extending into the mid transverse colon. There is also some surrounding fatty stranding but no luminal distention. There is mild fluid distention of the distal small bowel without a transition zone. Appendix: The appendix is not inflamed. Intraperitoneal space: Unremarkable. No free air. No significant fluid collection. Vasculature: Unremarkable. No abdominal aortic aneurysm. Lymph nodes: Unremarkable. No enlarged lymph nodes. Urinary bladder: Unremarkable as visualized. Reproductive: The uterus and ovaries are normal for age. Bones/joints: Unremarkable. No acute fracture. Soft tissues: Unremarkable. CT/CT abdomen pelvis w con* [id number] IMPRESSION: Enterocolitis without obstruction or abscess.
[2023-03-17 20:56] LABS: Basophils % 0.3 %; Eosinophils % 0.3 %; Lymphocytes # 0.9 10^3/uL (0.8-4.8); Lymphocytes % 11.7 %; Mean Corpuscular HGB Conc 34.2 g/dL (30-55); Mean Corpuscular Hemoglobin 32.1 pg (27-33); Mean Corpuscular Volume 93.9 fl (85-98); Monocytes # 0.5 10^3/uL (0.2-0.9); Monocytes % 6.8 %; Neutrophils # 6.28 10^3/uL (1.8-7.7); Neutrophils % 80.6 %; Nucleated Red Blood Cells % 0 %; Platelet Count 168 10^3/cmm (157-399); Red Blood Count 4.58 10^6/uL (3.85-5.65); Red Cell Distribution Width 12.8 % (12.1-15.1); White Blood Count 7.78 10^3/uL (3.29-11.43)
[2023-03-17] MEDS: iohexol 350 mg/mL 500 mL Btl (per mL) IV (21:02)
[2023-03-17 21:20] LABS: Alanine Aminotransferase 207 U/L (0-33); Albumin Level 4.1 g/dL (3.5-5.2); Alkaline Phosphatase 135 U/L (35-105); Anion Gap 16.4 (5-19); Aspartate Amino Transferase 75 U/L (0-32); Blood Urea Nitrogen 15 mg/dL (6-20); Calcium 9.1 mg/dL (8.5-10.5); Carbon Dioxide 21 mmol/L (22-29); Chloride 108 mmol/L (98-107); Globulin 2.8 g/dL (1.3-4.6); Glomerular Filtration Rate 90.1 mL/min (90-130); Glucose 113 mg/dL (65-115); Lipase 18 U/L (13-60); Osmolality Calculated 296 mOsm/kg (285-295); Potassium 3.4 mmol/L (3.5-5.1); Sodium 142 mmol/L (136-145); Total Bilirubin 0.3 mg/dL (0.15-1.2); Total Protein 6.9 g/dL (6.6-8.7)
[2023-03-17] MEDS: sodium chloride 0.9% 1,000 ML 999 ML IV (21:24)
[2023-03-17] MEDS: ondansetron 2 mg/ML SDV 2 mL 4 MG IVP (21:25)
[2023-03-17 21:26] VITALS: RESP 16; O2SAT 98
[2023-03-17] MEDS: morphine 4 mg/mL SDV 1 mL IVP (21:26)
[2023-03-17 21:46] LABS: Add Urine Culture? No; Add Urine Microscopic? YES; Amorphous Sediment Urine TRACE /hpf; Bilirubin Urine Neg (Negative); Blood Urine 3+ (Negative); Glucose Urine UA Norm (Normal); Ketones Urine 2+ (Negative); Leukocyte Esterase Urine Negative (Negative); Nitrate Urine Negative (Negative); Protein Urine 1+ (Negative); Squamous Epithelial Cell Urine 0-4 /hpf (0-5); Urine Appearance Clear (CLEAR); Urine Color Yellow (Yellow); Urobilinogen Urine Neg (Negative); pH Urine 6.5 (5-7)
[2023-03-17] MEDS: dexamethasone 10 mg/mL INJ IVP (21:59)
[2023-03-17] MEDS: ciprofloxacin 500 mg Tablet PO (21:59)
[2023-03-17 22:14] VITALS: BP 153/95; PULSE 108; RESP 14; O2SAT 96
== END 2023-03-17 22:15 | disposition home or self-care (01) ==
PROVIDERS: Emergency Provider Nurse Practitioner Family; PCP Nurse Practitioner
DX: K52.9 Noninfective gastroenteritis and colitis, unspecified (principal); Z79.82 Long term (current) use of aspirin; Z77.22 Contact with and (suspected) exposure to environmental tobacco smoke (acute) (chronic)
CPT/HCPCS: 74177; 80053; 81001; 83690; 85025; 96361; 96374; 96375; 99285; J1100; J2270; J2405; J7030; Q9967

== ENCOUNTER → 2023-04-17 09:44 | Outpatient (BNVA) | payer MEDICAID, SELFPAY | PROVIDERS: PCP Nurse Practitioner; Referring Provider Nurse Practitioner; Visit Provider Surgery | DX: Z12.11 Encounter for screening for malignant neoplasm of colon (principal); K21.9 Gastro-esophageal reflux disease without esophagitis | CPT/HCPCS: 99024; 99214 ==

== ENCOUNTER 2023-08-01 05:46 | Day surgery (SDC) | payer MEDICAID, SELFPAY ==
--- OUTSIDE RECORDS SUMMARY | 2023-04-18 11:21 | XMS_ITS | Patient Health Record ---
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 Name Role Phone Ruperto Oneill Primary Care Provider Unavaila Sakshi Schafer Unavailable [phone] [place], [place] Unavailable Unavailable Declan Odell Unavailable [phone] ALLERGIES No Known Allergies REASON FOR REFERRAL Reason Rectal Bleeding CO [place] Referring Provider First Name Naomi Paredesu Referring Provider Last Name [place] Referring Provider Speciality [facility] Referred Organization [facility] Referred Provider Declan Odell Referred Address [address],[facility] [place],[address], Referred Provider Specialty Gastroentero logy Referral Priority Routine MEDICATIONS Medication SIG (Take, Route, Frequency, Duration) Notes Start Date End Date Status Depo-Provera 150 MG/ML 1 mL Intramuscula r quarterly Active Gabapentin 400 MG 1 capsule Orally thr ee times a day Active Cimetidine 200 200 MG 1 tablet Orally tw ice a day Active Emgality 120 MG/ML 1 mL Subcutaneous monthly Active Desvenlafaxine ER 100 MG 1 tablet Orally Once a day Active Diclofenac Potassium 50 MG 1 tablet Oral ly Twice a day Active Sucralfate 1 GM 1 tablet on an empty stomach Orally four times a day Active traZODone HCl 50 MG 1 tablet at bedtime as needed Orally Once a day Active Furosemide 20 MG 1 tablet Orally Once a day Active Baclofen 10 MG 1 tablet Orally Twic e a day Active Levothyroxine Sodium 150 MCG 1 tablet in the morning on an empty stomach Orally Once a day Active Omeprazole 20 MG 1 capsule 30 minutes before morning meal Orally Once a day Active SOCIAL HISTORY Tobacco Use: Social History Observation Description Date Details (start date - stop date) Never Smoker NA - NA Sex Assigned At : Social History Observation Description Sex Assigned At Unknown Tobacco Use/Smoking Question Answer Notes Are you a nonsmoker Alcohol Screen (Audit-C) Question Answer Notes Did you have a drink containing alcohol in the p ast year? No Points 0 Interpretation Negative VITAL SIGNS Heart Rate 80 /min 11/24/2022 Temperature 97.9 degrees Fahrenheit 11/24/2022 Respiratory Rate 20 /min 11/24/2022 Height-cm 170.18 cm 11/24/2022 Oximetry 97 % 11/24/2022 Blood pressure diastolic 84 mm Hg 11/24/2022 Weight-kg 71.76 kg 11/24/2022 Height 67 in 11/24/2022 Blood pressure systolic 130 mm Hg 11/24/2022 Weight 158.2 lbs 11/24/2022 BMI 24.77 kg/m2 11/24/2022 Encounters Encounter Location Date Provider Diagnosis [facility] [address] [place] [address] 11/02/2022 Sakshi Hunt [facility] [address] [place] [address] 11/24/2022 Sakshi Hunt Positive fecal occul t blood test R19.5 ; Screening for colon cancer Z12.11 and Preprocedural examination Z01.818 [facility] [address] [place] [address] 01/03/2023 Declan Odell ASSESSMENTS Encounter Date Diagnosis Assessment Notes Treatment Notes Treatment Clinical Notes 11/24/2022 Screening for colon cancer (ICD-10 - Z12.11) 11/24/2022 Positive fecal occult blood test (ICD-10 - R19.5) 11/24/2022 Preprocedural examination (ICD-10 - Z01.818) The patient has a prerequisite risk factors for development of colon cancer. I have discussed the options of screening testing with their advantages and disadvantages. I have recommended screening colonoscopy with possible biopsy and polypectomy. Risks and Benefits: The benefits, risks, and complications were presented to pt. The patient is aware of the risk of bleeding, perforation, infection, and anesthetic complications related to colonoscopy. The patient is aware that although colonoscopy is an accurate procedure, it does have some limitations. As a result, some lesions, including cancer may be missed by colonoscopy. Ample time was given to answer all questions. Instructions given for the bowel prep. Follow up will be determined after the colonoscopy. Refer back to PCP. 11/24/2022 Other Colonoscopy: Be fore Your Procedure material was printed, Learning About Foods That Are Good Sources of Fiber material was printed PLAN OF TREATMENT Pending Test Test Name Order Date Colonoscopy, Average Risk Screening-G012 1 11/24/2022 Insurance Providers Payer Name Payer Address Payer Phone Subscriber Number Group Number Insured Name Patient Relationship to Insured Coverage Start Date Coverage End Date [employer] [address] [place] [phone] [id number] Antonietta Duke Self - patient is the insured MEDICAL (GENERAL) HISTORY Medical History History ICD Code Migraines hx of infectious [place] Anxiety Depression Fibromyalgia Hypothyroidism Bursitis GERD Surgical History Surgery Date(Month/Year) Left elbow repair 1983 Cholecystectomy 2020 Right ankle repair 2015
[2023-08-01 06:13] VITALS: BP 130/83; PULSE 89; RESP 16; TEMP 36.1; O2SAT 100; BMI 24.4
[2023-08-01] MEDS: sodium chloride 0.9% 1,000 ML 30 ML IV (06:25)
--- NOTE | 2023-08-01 06:50 | PM.HP ---
Providers/Chief Complaint Primary Care Provider: FRANCA Thompson Chief Complaint: Z12.11, K21.9 History of Present Illness Antonietta Duke is a 47 year old female Review of Systems General: Reports: 10 or more systems reviewed and unremarkable except in HPI and below Medications/Allergies Home Medications Medication Instructions Recorded Confirmed Last Taken Type cholecalciferol (vitamin D3) 25 1,000 unit PO DAILY 08/06/19 08/01/23 07/31/23 History mcg (1,000 unit) capsule cimetidine 200 mg tablet 200 mg PO BID 08/06/19 08/01/23 07/31/23 History diclofenac sodium 75 mg 75 mg PO BID 08/06/19 08/01/23 07/31/23 History tablet,delayed release diphenhydramine HCl 25 mg capsule 25 mg PO Q6H PRN Allergic Symptoms 08/06/19 08/01/23 07/31/23 History (Benadryl) echinacea 400 mg capsule 400 mg PO DAILY 08/06/19 08/01/23 07/31/23 History levothyroxine 112 mcg tablet 112 mcg PO DAILY 08/06/19 08/01/23 08/01/23 History (Synthroid) magnesium oxide 500 mg capsule 500 mg PO DAILY 08/06/19 08/01/23 07/31/23 History medroxyprogesterone 150 mg/mL 1 mg IM Q90D 08/06/19 08/01/23 1 Month Ago History intramuscular suspension ~07/01/23 (Depo-Provera) potassium gluconate 595 mg (99 mg) 595 mg PO DAILY 08/06/19 08/01/23 07/31/23 History tablet psyllium husk 0.52 gram capsule 0.52 gm PO DAILY 08/06/19 08/01/23 07/31/23 History (Daily Fiber) vitamin B complex (B 1 tab PO DAILY 08/06/19 08/01/23 07/31/23 History Complex-Vitamin B12 tablet) gabapentin 800 mg tablet 900 mg PO DAILY 11/10/20 08/01/23 07/31/23 History trazodone 50 mg tablet 50 mg PO BEDTIME 11/10/20 08/01/23 07/31/23 History desvenlafaxine succinate 100 mg 100 mg PO DAILY 02/09/21 08/01/2324 History tablet,extended release 24 hr (Pristiq) furosemide 20 mg tablet 20 mg PO DAILY 03/09/21 08/01/23 07/31/23 History baclofen 10 mg tablet 10 mg PO TID 04/28/21 08/01/23 07/31/23 History ascorbate calcium (vitamin C) 500 500 mg PO DAILY 06/06/22 08/01/23 07/31/23 History mg tablet zinc acetate 50 mg (zinc) capsule 50 mg PO DAILY 06/06/22 08/01/23 07/31/23 History acetaminophen 500 mg tablet 500 mg PO Q6H PRN Pain 10/04/22 08/01/23 07/31/23 History (Tylenol Extra Strength) galcanezumab-gnlm 120 mg/mL 240 mg (2 mL) SUBCUT .1 injection 10/04/22 08/01/23 07/31/23 Rx subcutaneous pen injector a month #2 mL (Emgality Pen) ibuprofen 200 mg tablet 200 mg PO Q6H PRN Pain 10/04/22 08/01/23 07/31/23 History galcanezumab-gnlm 120 mg/mL 120 mg SUBCUT .1 injection a month 01/17/23 08/01/23 07/31/23 Rx subcutaneous pen injector #3 mL (Emgality Pen) sumatriptan succinate 100 mg 100 mg PO .COMPLEX #10 tabs 01/17/23 08/01/23 07/31/23 Rx tablet (Imitrex) ciprofloxacin HCl 500 mg tablet 500 mg PO BID #9 tabs 03/17/23 08/01/23 07/31/23 Rx ibandronate 150 mg tablet 150 mg PO DIRECTED 04/17/23 08/01/23 07/31/23 History omeprazole 40 mg capsule,delayed 40 mg PO DAILY 04/17/23 08/01/23 07/31/23 History release propranolol 20 mg tablet 20 mg PO BID 07/30/23 08/01/23 08/01/23 History Allergies Allergy/AdvReac Type Severity Reaction Status Date / Time No Known Allergies Allergy Verified 08/01/23 06:10 PFSH Acute PFSH: Medical History Anxiety Hypothyroidism GERD (gastroesophageal reflux disease) Surgical History Status post laparoscopic cholecystectomy (08/25/20) History of ankle surgery History of esophagogastroduodenoscopy (EGD) (~2020) Family History Other Atrial fibrillation Hypertension Social History Smoking and tobacco/nicotine status: never used tobacco/nicotine Second hand smoke exposure: Yes Alcohol intake: never Substance/Drug Use: never Vitals/I&O/Wt Last Vital Signs Temp 97.0 F L 08/01/23 06:13 Pulse 89 08/01/23 06:13 Resp 16 08/01/23 06:13 BP 130/83 08/01/23 06:13 Pulse Ox 100 08/01/23 06:13 O2 Del Method Room Air 08/01/23 06:13 Weight last 48 hrs Weight 156 lb A&P Assessment and plan (1) GERD (gastroesophageal reflux disease): (2) Colon cancer screening: Plan EGD Screening colonoscopy Attestations Medical Necessity Statement*: home Coding Level of Care Code Acute Code for Chg Fwd Diagnoses GERD (gastroesophageal reflux disease) K21.9 Colon cancer screening Z12.11
--- NOTE | 2023-08-01 06:55 | ANES.PREANE2 ---
Pre-Anesthetic Assessment Height/Weight: Height 1.7 m Weight 70.76 kg Temp Pulse Resp BP Pulse Ox O2 Del Method 97.0 F L 89 16 130/83 100 Room Air 08/01/23 06:13 08/01/23 06:13 08/01/23 06:13 08/01/23 06:13 08/01/23 06:13 08/01/23 06:13 Operation Date: 08/01/23 07:00 Proposed Procedures p [id number] egd [id number] colon G0121 screen colon A risk Z12.11,K21.9(Not Applicable) - Gagandeep Milner DO s Colonoscopy(Not Applicable) - Gagandeep Milner DO Was Beta Huong taken within 24 hours: Yes Was Clonidine taken within 24 hours: N/A Last intake: Intake Last Liquid Date 07/31/23 Last Liquid Time 17:30 Last Solid Date 07/30/23 Last Solid Time 13:00 Last Intake: 22:00 Social No alcohol and No tobacco Exam alert, oriented x 3, clear to auscultation bilaterally and regular rate & rhythm Airway Submandibular: within normal limits Cervical ROM: within normal limits Mallampati: Class II Dentition: chipped Comments: Comments: poor dentition History/ROS No significant history except as noted Pulmonary None reported CV/HEM None reported None reported Hepatic None reported GI None reported Metabolic Thyroid Disease hypothyroid Musc/skel Fibromyalgia and Osteoarthritis/DJD Neuropsych None reported Anesthetic Plan ASA status: 2 Anesthesia: MAC Risk of > 500 ml blood loss (7ml/kg in children): Yes, adequate IV access and fluids planned Medications/Allergies Home Medications Medication Instructions Recorded Confirmed Last Taken Type cholecalciferol (vitamin D3) 25 1,000 unit PO DAILY 08/06/19 08/01/23 07/31/23 History mcg (1,000 unit) capsule cimetidine 200 mg tablet 200 mg PO BID 08/06/19 08/01/23 07/31/23 History diclofenac sodium 75 mg 75 mg PO BID 08/06/19 08/01/23 07/31/23 History tablet,delayed release diphenhydramine HCl 25 mg capsule 25 mg PO Q6H PRN Allergic Symptoms 08/06/19 08/01/23 07/31/23 History (Benadryl) echinacea 400 mg capsule 400 mg PO DAILY 08/06/19 08/01/23 07/31/23 History levothyroxine 112 mcg tablet 112 mcg PO DAILY 08/06/19 08/01/23 08/01/23 History (Synthroid) magnesium oxide 500 mg capsule 500 mg PO DAILY 08/06/19 08/01/23 07/31/23 History medroxyprogesterone 150 mg/mL 1 mg IM Q90D 08/06/19 08/01/23 1 Month Ago History intramuscular suspension ~07/01/23 (Depo-Provera) potassium gluconate 595 mg (99 mg) 595 mg PO DAILY 08/06/19 08/01/23 07/31/23 History tablet psyllium husk 0.52 gram capsule 0.52 gm PO DAILY 08/06/19 08/01/23 07/31/23 History (Daily Fiber) vitamin B complex (B 1 tab PO DAILY 08/06/19 08/01/23 07/31/23 History Complex-Vitamin B12 tablet) gabapentin 800 mg tablet 900 mg PO DAILY 11/10/20 08/01/23 07/31/23 History trazodone 50 mg tablet 50 mg PO BEDTIME 11/10/20 08/01/23 07/31/23 History desvenlafaxine succinate 100 mg 100 mg PO DAILY 02/09/21 08/01/23 07/31/23 History tablet,extended release 24 hr (Pristiq) furosemide 20 mg tablet 20 mg PO DAILY 03/09/21 08/01/23 07/31/23 History baclofen 10 mg tablet 10 mg PO TID 04/28/21 08/01/23 07/31/23 History ascorbate calcium (vitamin C) 500 500 mg PO DAILY 06/06/22 08/01/23 07/31/23 History mg tablet zinc acetate 50 mg (zinc) capsule 50 mg PO DAILY 06/06/22 08/01/23 07/31/23 History acetaminophen 500 mg tablet 500 mg PO Q6H PRN Pain 10/04/22 08/01/23 07/31/23 History (Tylenol Extra Strength) galcanezumab-gnlm 120 mg/mL 240 mg (2 mL) SUBCUT .1 injection 10/04/22 08/01/23 07/31/23 Rx subcutaneous pen injector a month #2 mL (Emgality Pen) ibuprofen 200 mg tablet 200 mg PO Q6H PRN Pain 10/04/22 08/01/23 07/31/23 History galcanezumab-gnlm 120 mg/mL 120 mg SUBCUT .1 injection a month 01/17/23 08/01/23 07/31/23 Rx subcutaneous pen injector #3 mL (Emgality Pen) sumatriptan succinate 100 mg 100 mg PO .COMPLEX #10 tabs 01/17/23 08/01/23 07/31/23 Rx tablet (Imitrex) ciprofloxacin HCl 500 mg tablet 500 mg PO BID #9 tabs 03/17/23 08/01/23 07/31/23 Rx ibandronate 150 mg tablet 150 mg PO DIRECTED 04/17/23 08/01/23 07/31/23 History omeprazole 40 mg capsule,delayed 40 mg PO DAILY 04/17/23 08/01/23 07/31/23 History release propranolol 20 mg tablet 20 mg PO BID 07/30/23 08/01/23 08/01/23 History Allergies Allergy/AdvReac Type Severity Reaction Status Date / Time No Known Allergies Allergy Verified 08/01/23 06:10 Current Medications Generic Name Dose Route Start Last Admin Trade Name Freq PRN Reason Stop Dose Admin Sodium Chloride 1,000 mls @ 30 mls/hr 08/01/23 06:00 08/01/23 06:25 Sodium Chloride 0.9% IV 08/02/23 05:59 30 mls/hr .Q24H ITZEL Administration PFSH Anesthesia Medical History Anxiety Hypothyroidism GERD (gastroesophageal reflux disease) Surgical History Status post laparoscopic cholecystectomy (08/25/20) History of ankle surgery History of esophagogastroduodenoscopy (EGD) (~2020) Family History Other Atrial fibrillation Hypertension Social History Smoking and tobacco/nicotine status: never used tobacco/nicotine Second hand smoke exposure: Yes Alcohol intake: never Substance/Drug Use: never Data Anesthesia Cardiac Studies: Holter Monitor 09/03/19
[2023-08-01 07:21] VITALS: BP 118/71; PULSE 74; RESP 14; TEMP 36.2; O2SAT 99
[2023-08-01 07:35] VITALS: BP 108/74; PULSE 76; RESP 16; O2SAT 96
[2023-08-01 07:49] VITALS: BP 121/79; PULSE 79; RESP 16; O2SAT 97
--- NOTE | 2023-08-01 07:55 | ANE.PACU2 ---
Inpatient post-anesthesia follow up: Airway intact: Yes Vital signs: Temperature 97.2 F Pulse Rate 79 Respiratory Rate 16 Blood Pressure 121/79 Pulse Oximetry 97 Oxygen Delivery Me thod Room Air Oxygen Flow Rate Fraction of Inspir ed Oxygen Hydration adequate: Yes Nausea and vomiting: No Pain level: 1 Mental status: Baseline
== END 2023-08-01 07:55 | disposition home or self-care (01) ==
PROVIDERS: PCP Nurse Practitioner; Visit Provider Surgery
PROC: 0DJ08ZZ Inspection of Upper Intestinal Tract, Via Natural or Artificial Opening Endoscopic (ICD-10-PCS; CPT 43235; principal; 2023-08-01 07:00)
PROC: 0DJD8ZZ Inspection of Lower Intestinal Tract, Via Natural or Artificial Opening Endoscopic (ICD-10-PCS; CPT 45378; 2023-08-01 07:00)
DX: Z12.11 Encounter for screening for malignant neoplasm of colon (principal); K21.9 Gastro-esophageal reflux disease without esophagitis; F41.9 Anxiety disorder, unspecified; E03.9 Hypothyroidism, unspecified; M79.7 Fibromyalgia
CPT/HCPCS: 43239; 45378; 88305; J2704; J7030

== ENCOUNTER → 2023-08-10 10:05 | Outpatient (BNVA) | payer MEDICAID, SELFPAY | PROVIDERS: PCP Nurse Practitioner; Referring Provider Nurse Practitioner; Visit Provider Student in an Organized Health Care Education/Training Program | DX: M70.61 Trochanteric bursitis, right hip | CPT/HCPCS: 73522; 99213 ==

== ENCOUNTER → 2023-08-16 10:19 | Outpatient (BNVA) | payer MEDICAID, SELFPAY | PROVIDERS: PCP Nurse Practitioner; Visit Provider Surgery | DX: K21.9 Gastro-esophageal reflux disease without esophagitis (principal) | CPT/HCPCS: 99214 ==

== ENCOUNTER 2023-11-08 10:43 | Outpatient (CLI) | payer OTHER, SELFPAY ==
--- NOTE | 2023-11-08 10:45 | MM_ITS ---
WS: [id number] VIEWS: MLO and CC views both breasts. 3D digital tomosynthesis is also included in this exam. Comparison made with prior exam of 01/04/2018, 01/06/2019, 03/12/2020, 08/19/2021, . Findings: There was no sign of mass, architectural distortion or suspicious calcification in either breast. The breasts are heterogeneously dense which could obscure small masses. MM/[place] [id number] Impression: BI-RADS: 2-Benign finding. FOLLOW-UP: 1 Year Follow-up This mammogram was also analyzed by the Computer Aided Detection System [employer].
== END 2023-11-08 10:44 | disposition home or self-care (01) ==
PROVIDERS: PCP Nurse Practitioner; Visit Provider Nurse Practitioner
DX: Z12.31 Encounter for screening mammogram for malignant neoplasm of breast (principal)
CPT/HCPCS: 77063; 77067

== ENCOUNTER → 2024-01-25 09:35 | Outpatient (BNVA) | payer MEDICAID, SELFPAY | PROVIDERS: PCP Nurse Practitioner; Visit Provider Student in an Organized Health Care Education/Training Program | DX: M70.62 Trochanteric bursitis, left hip (principal) | CPT/HCPCS: 20610; 99214; J3301; J3490 ==

== ENCOUNTER → 2024-02-26 08:25 | Outpatient (BNVA) | payer MEDICAID, SELFPAY | PROVIDERS: PCP Nurse Practitioner; Visit Provider Specialist | DX: G43.711 Chronic migraine without aura, intractable, with status migrainosus (principal); R26.9 Unspecified abnormalities of gait and mobility | CPT/HCPCS: 99214 ==

== ENCOUNTER → 2024-05-06 08:24 | Outpatient (BNVA) | payer MEDICAID, SELFPAY | PROVIDERS: PCP Nurse Practitioner; Visit Provider Student in an Organized Health Care Education/Training Program | DX: M70.62 Trochanteric bursitis, left hip | CPT/HCPCS: 99213 ==

== ENCOUNTER → 2024-08-26 14:58 | Outpatient (BNVA) | payer MEDICAID, SELFPAY | PROVIDERS: PCP Nurse Practitioner; Visit Provider Student in an Organized Health Care Education/Training Program | DX: M25.552 Pain in left hip (principal); S73.192A Other sprain of left hip, initial encounter; X58.XXXA Exposure to other specified factors, initial encounter; M70.62 Trochanteric bursitis, left hip | CPT/HCPCS: 73502; 99214 ==

== ENCOUNTER 2024-11-10 09:42 | Outpatient (CLI) | payer OTHER, SELFPAY ==
--- NOTE | 2024-11-10 09:49 | MM_ITS ---
WS: [id number] BILATERAL SCREENING DIGITAL TOMOSYNTHESIS MAMMOGRAM WITH CAD HISTORY: SCREENING COMPARISON: 11/08/2023, 11/01/2022 Bilateral CC and MLO views with tomosynthesis and synthetic mammography submitted. Computer aided detection analyzed. Breast composition: There are scattered areas of fibroglandular density. No suspicious masses, microcalcifications or architectural distortion. MM/MM scr BI tomosynthesis [id number] IMPRESSION: BI-RADS: 1 - Negative. FOLLOW UP: 1 Year Follow-up
== END 2024-11-10 09:43 | disposition home or self-care (01) ==
LOC: RAD 09:42
PROVIDERS: PCP Nurse Practitioner; Visit Provider Nurse Practitioner
DX: Z12.31 Encounter for screening mammogram for malignant neoplasm of breast (principal); R92.323 Mammographic fibroglandular density, bilateral breasts
CPT/HCPCS: 77063; 77067

== ENCOUNTER → 2024-11-11 08:04 | Outpatient (BNVA) | payer MEDICAID, SELFPAY | PROVIDERS: PCP Nurse Practitioner; Visit Provider Student in an Organized Health Care Education/Training Program | DX: S73.192A Other sprain of left hip, initial encounter (principal); M70.62 Trochanteric bursitis, left hip; X58.XXXA Exposure to other specified factors, initial encounter | CPT/HCPCS: 99213 ==

== ENCOUNTER → 2024-11-25 08:39 | Outpatient (BNVA) | payer MEDICAID, SELFPAY | PROVIDERS: PCP Nurse Practitioner; Visit Provider Specialist | DX: G43.711 Chronic migraine without aura, intractable, with status migrainosus (principal); R26.9 Unspecified abnormalities of gait and mobility | CPT/HCPCS: 99213 ==

== ENCOUNTER 2025-02-04 12:21 | Outpatient (CLI) | payer MEDICAID, SELFPAY ==
--- NOTE | 2025-02-04 12:25 | XR_ITS ---
WS: [id number] DEXA (DUAL ENERGY X-RAY ABSORPTIOMETRY) Bone mineral density was performed using a [employer] machine. HISTORY: OSTEOPENIA COMPARISON: 12/11/2022 Lumbar spine BMD (L1-L4): 0.908 g/cm2 T score: -2.3 Z score: -2.1 Total hip BMD: Left: 0.669 g/cm2. T score: -2.7 Z score: -2.4 Right: 0.675 g/cm2. T score: -2.6 Z score: -2.3 10 year probability of a major osteoporotic fracture is 5.1%. Compared to the prior study from 12/11/2022. Lumbar spine bone mineral density has decreased by 8.0%. Bilateral hips bone mineral density has decreased by 5.4%. XR/XR DEXA axial skeleton* [id number] IMPRESSION: OSTEOPOROSIS based upon the WHO classification for females. Significant decreas e in bone mineral density within the lumbar spine and hips since the prior stud y.
== END 2025-02-04 12:22 | disposition home or self-care (01) ==
LOC: RAD 12:21
PROVIDERS: PCP Nurse Practitioner; Visit Provider Nurse Practitioner
DX: M25.512 Pain in left shoulder (principal); M75.42 Impingement syndrome of left shoulder
CPT/HCPCS: 20610; 73030; 77080; 99203; J3301; J9999

== ENCOUNTER → 2025-04-01 09:28 | Outpatient (BNVA) | payer MEDICAID, SELFPAY | PROVIDERS: PCP Nurse Practitioner; Visit Provider Physician Assistant | DX: M75.42 Impingement syndrome of left shoulder (principal) | CPT/HCPCS: 99213 ==

== ENCOUNTER 2025-04-21 07:26 | Outpatient (CLI) | payer MEDICAID, SELFPAY ==
--- NOTE | 2025-04-21 08:00 | MR_ITS ---
WS: [id number] MRI LEFT SHOULDER HISTORY: impingment of left shoulder, chronic shoulder pain with remote fall. COMPARISON: 04/12/2021, radiographs 02/04/2025 TECHNIQUE: Multiplanar sequences of the shoulder joint are submitted. Mild AC joint arthritis. No significant progression since the prior study. Mild downsloping of the acromion with a small enthesopathy resulting in mild subacromial impingement. Similar to the prior exam from 2020. Normal position of the biceps tendon. No os acromion. Mild tendinopathy in the distal supraspinatus tendon. Calcific deposits in the distal supraspinatus tendon from calcific tendinitis. No tear is identified. There is impingement upon the distal supraspinatus tendon by the subacromial osteophyte. Distal subscapularis tendinopathy. Thickening and increased signal within the tendon. No tear identified. The tendon is slightly wavy but does appear to be intact. Infraspinatus and teres minor are intact. No muscle atrophy or edema. There is a small amount of edema in the rotator cuff interval. The coracohumeral ligament is intact but mildly thickened. Biceps tendon in normal position. No labral tear is identified on today's exam. Thickening and increased signal within the axillary recess. No significant fluid in the axillary recess. MR/MR shoulder LT wo con* [id number] IMPRESSION: 1. Mild downsloping of the acromion with subacromial impingement. Similar to t he prior study from 2020. 2. No rotator cuff tendon tears. 3. Tendinopathy noted in the distal subscapularis tendon. 4. Thickening of the axillary recess and the coracohumeral ligament suggesting mild changes of adhesive capsulitis. 5. No labral tear. 6. Calcific tendinitis in the distal supraspinatus tendon.
== END 2025-04-21 07:27 | disposition home or self-care (01) ==
LOC: RAD 07:27
PROVIDERS: PCP Nurse Practitioner; Visit Provider Physician Assistant
DX: M75.42 Impingement syndrome of left shoulder (principal); M67.814 Other specified disorders of tendon, left shoulder; M75.32 Calcific tendinitis of left shoulder
CPT/HCPCS: 73221